=== PATIENT | female | born 1945 | race Caucasian/White ===

== ENCOUNTER 2016-12-18 13:25 | Emergency (ER) | payer MEDICARE ==
[~2016-12-18] VITALS: Ht 160 cm; Wt 68.0 kg
[~2016-12-18 13:25] MED LIST: AMLO1TAB15; FLUT1DIS5; HYDR25TA; SIMV20TA6
[2016-12-18] MEDS ORDERED: IPRATROPIUM BROMIDE (0.02%) 0.5MG/2.5ML NEB HHN STA (14:38)
[2016-12-18] MEDS ORDERED: METHYLPREDNISOLONE SOD SUCC 125 MG/2 ML VIAL IV STA (14:38)
[2016-12-18] MEDS ORDERED: ALBUTEROL (0.083%) 2.5MG/3ML NEB HHN STA (14:38)
[2016-12-18] MEDS ORDERED: LEVOFLOXACIN 500MG PREMIX 100 ML IV ONE (14:45)
[2016-12-18] MEDS ORDERED: MAGNESIUM 2 G PREMIX 50 ML IV ONE (14:45)
[2016-12-18 14:56] LABS: BASOPHILS % 0.7 % (0.0-2.0); EOSINOPHILS % 3.9 % (0.0-5.0); HEMOGLOBIN. 14.2 g/dL (12.0-16.0); LYMPHOCYTES % 6.7 % (20.0-50.0); MEAN CORPUSCULAR HEMOGLOBIN 33.1 pg (28.0-32.0); MEAN CORPUSCULAR VOLUME 97.8 fL (81.0-99.0); MEAN PLATELET VOLUME 8.8 fl (7.4-10.4); MONOCYTES % 9.3 % (2.0-8.0); NEUTROPHILS % 79.4 % (40.0-76.0); PLATELET 179 x1000/uL (130-400); RED CELL DISTRIBUTION WIDTH 14.1 % (11.6-14.6)
[2016-12-18 15:04] LABS: PROTHROMBIN TIME 10.3 sec
[2016-12-18 15:15] LABS: CARBON DIOXIDE 28 mEq/L (21-32); CHLORIDE 105 mEq/L (98-107); TROPONIN I < 0.02 ng/mL (0.00-0.04)
[2016-12-18 15:44] LABS: CLARITY URINE CLEAR (CLEAR); COLOR URINE YELLOW (YELLOW); GLUCOSE URINE NEGATIVE (NEGATIVE); KETONES URINE NEGATIVE (NEGATIVE); LEUKOCYTE ESTERASE URINE NEGATIVE (NEGATIVE); NITRITE URINE NEGATIVE (NEGATIVE); OCCULT BLOOD URINE 1+ (NEGATIVE); PH URINE 5.5 (4.5-8.0); PROTEIN URINE NEGATIVE (NEGATIVE); SPECIFIC GRAVITY URINE 1.009 (1.005-1.030); UROBILINOGEN URINE 0.2 E.U./dL (0.2-1.0)
[2016-12-18 17:15] VITALS: BP 149/76
== END 2016-12-18 17:34 | disposition left against medical advice (07) ==
LOC: ER 14:35 → ENRESERV 16:09 → CANRESERV 16:09 → ER 17:34 → CANBEDREQ 18:34
DX: J44.1 Chronic obstructive pulmonary disease with (acute) exacerbation (principal); I11.0 Hypertensive heart disease with heart failure; I50.9 Heart failure, unspecified; E78.5 Hyperlipidemia, unspecified; Z90.49 Acquired absence of other specified parts of digestive tract
CPT/HCPCS: 36415; 71010; 80053; 81001; 83605; 83880; 84484; 85025; 85610; 86850; 86900; 86901; 87040; 87086; 93005; 94640; 96365; 96368; 96375; 99291; J1956; J2930; J3475; J7611

== ENCOUNTER 2017-02-12 12:18 | Emergency (ER) | payer MEDICARE ==
[~2017-02-12] VITALS: Ht 160 cm; Wt 65.0 kg
[2017-02-12] MEDS ORDERED: ACETAMINOPHEN 500MG TABLET PO ONE (14:45)
[2017-02-12 14:51] VITALS: BP 129/46
== END 2017-02-12 16:09 | disposition home or self-care (01) ==
LOC: ER 13:59
DX: S56.911A Strain of unspecified muscles, fascia and tendons at forearm level, right arm, initial encounter (principal); J44.9 Chronic obstructive pulmonary disease, unspecified; I10 Essential (primary) hypertension; E78.00 Pure hypercholesterolemia, unspecified; Z90.49 Acquired absence of other specified parts of digestive tract; X58.XXXA Exposure to other specified factors, initial encounter; Y93.89 Activity, other specified; Y92.89 Other specified places as the place of occurrence of the external cause; Y99.8 Other external cause status
CPT/HCPCS: 73070; 73090; 99284

== ENCOUNTER 2022-09-20 21:19 | Inpatient (IN) | payer MEDICARE, MEDICAID ==
[~2022-09-20] VITALS: Ht 152.4 cm; Wt 60.8 kg
[~2022-09-20 21:19] MED LIST changes: +SIMV-43; -SIMV20TA6
[2022-09-20] MEDS ORDERED: SODIUM CHLORIDE 0.9% 1,000 ML IV ONE (22:45)
[2022-09-20 23:45] LABS: CHLORIDE 97 mEq/L (98-107)
[2022-09-20 23:51] LABS: HEMATOCRIT. 34.5 % (36.0-48.0); HEMOGLOBIN. 11.2 g/dL (12.0-16.0); MEAN CORPUSCULAR HEMOGLOBIN 30.2 pg (28.0-32.0); MEAN CORPUSCULAR VOLUME 93.3 fL (81.0-99.0); PLATELET 459 x1000/uL (130-400); RED CELL DISTRIBUTION WIDTH 15.6 % (11.6-14.6)
[2022-09-21 01:28] LABS: CLARITY URINE TURBID (CLEAR); COLOR URINE ORANGE (YELLOW); KETONES URINE TRACE (NEGATIVE); LEUKOCYTE ESTERASE URINE 2+ (NEGATIVE); NITRITE URINE NEGATIVE (NEGATIVE); OCCULT BLOOD URINE 3+ (NEGATIVE); PH URINE 5.5 (4.5-8.0); PROTEIN URINE 2+ (NEGATIVE); SPECIFIC GRAVITY URINE 1.026 (1.005-1.030)
[2022-09-21] MEDS ORDERED: VANCOMYCIN 1G PREMIX 200 ML IV NR (01:30)
[2022-09-21] MEDS ORDERED: PIPERACILLIN/TAZ 3.375G PREMIX 50 ML IV NR (01:30)
[2022-09-21] MEDS ORDERED: IOHEXOL-300 100 ML BOTTLE ONE (04:32)
[2022-09-21 08:15] LABS: PLATELET ESTIMATE INCREASED
[2022-09-21] MEDS ORDERED: IPRATROPIUM/ALBUTEROL 0.5-3(2.5)MG/3ML NEB HHN PRN (13:00)
[2022-09-21] MEDS ORDERED: VANCOMYCIN 1G PREMIX 200 ML IV SCH (13:00)
[2022-09-21] MEDS ORDERED: PIPERACILLIN/TAZ 3.375G PREMIX 50 ML IV SCH (13:00)
[2022-09-21] MEDS ORDERED: CLON0.1T PO (14:41)
[2022-09-21] MEDS ORDERED: LABE300T36 PO (14:41)
[2022-09-21] MEDS ORDERED: ASPI-1497 PO (14:41)
[2022-09-21] MEDS ORDERED: MOME13HF11 INH (14:41)
[2022-09-21] MEDS ORDERED: TIOT18CA3 IH (14:41)
[2022-09-21] MEDS: ACETAMINOPHEN 325MG TABLET PO PRN ×2 (15:05→21:11)
[2022-09-21] MEDS: PIPERACILLIN/TAZOBACTAM 3.375G in DEXT 5% WATER 50ML IV SCH ×2 (15:16→23:11)
[2022-09-21 15:41] VITALS: BP 137/75
[2022-09-21 15:53] VITALS: BP 176/68
[2022-09-21 16:30] VITALS: BP 155/63
[2022-09-21] MEDS: VANCOMYCIN 750MG PREMIX 150 ML IV SCH (18:15)
[2022-09-21 20:00] VITALS: BP 166/70
[2022-09-21 21:53] LABS: CREATINE KINASE MB FRACTION 1.5 ng/mL (0.5-3.6)
[2022-09-21] MEDS: HYDROCODONE/ACETAMINOPHEN 5/325MG TABLET PO PRN (23:12)
[2022-09-22] VITALS (7 sets, daily range): BP systolic 130–195; BP diastolic 60–88
[2022-09-22] MEDS: CLONIDINE 0.1MG TABLET PO PRN ×3 (00:41→21:49)
[2022-09-22 02:58] LABS: CREATINE KINASE MB FRACTION 1.6 ng/mL (0.5-3.6)
[2022-09-22] MEDS: PIPERACILLIN/TAZOBACTAM 3.375G in DEXT 5% WATER 50ML IV SCH ×3 (05:43→21:49)
[2022-09-22] MEDS ORDERED: HYDRALAZINE 20MG/ML VIAL IV PRN (10:45)
[2022-09-22] MEDS: VANCOMYCIN 750MG PREMIX 150 ML IV SCH (12:41)
[2022-09-22 13:16] LABS: HEMATOCRIT. 30.2 % (36.0-48.0); HEMOGLOBIN. 10.1 g/dL (12.0-16.0); MEAN CORPUSCULAR HEMOGLOBIN 31.1 pg (28.0-32.0); MEAN CORPUSCULAR VOLUME 92.5 fL (81.0-99.0); MEAN PLATELET VOLUME 8.1 fl (7.4-10.4); PLATELET 421 x1000/uL (130-400); RED BLOOD CELL COUNT 3.27 mill/uL (4.2-5.4); RED CELL DISTRIBUTION WIDTH 15.6 % (11.6-14.6)
[2022-09-22 13:53] LABS: PLATELET ESTIMATE INCREASED
[2022-09-22] MEDS: HYDROCODONE/ACETAMINOPHEN 5/325MG TABLET PO PRN ×2 (14:13→21:49)
[2022-09-22 14:45] LABS: CHLORIDE 98 mEq/L (98-107)
[2022-09-22] MEDS ORDERED: POTASSIUM CHLORIDE 20MEQ TABLET SR PO NR (23:30)
[2022-09-23] MEDS: SODIUM CHLORIDE 0.9% 1,000 ML IV SCH ×2 (00:38→13:37)
[2022-09-23] MEDS: PIPERACILLIN/TAZOBACTAM 3.375G in DEXT 5% WATER 50ML IV SCH ×3 (06:00→21:04)
[2022-09-23] MEDS: VANCOMYCIN 750MG PREMIX 150 ML IV SCH ×2 (06:29→19:02)
[2022-09-23 07:03] LABS: HEMATOCRIT. 32.7 % (36.0-48.0); HEMOGLOBIN. 10.8 g/dL (12.0-16.0); MEAN CORPUSCULAR HEMOGLOBIN 30.9 pg (28.0-32.0); PLATELET 430 x1000/uL (130-400); RED BLOOD CELL COUNT 3.48 mill/uL (4.2-5.4); RED CELL DISTRIBUTION WIDTH 16.1 % (11.6-14.6)
[2022-09-23 07:49] LABS: CHLORIDE 99 mEq/L (98-107)
[2022-09-23 08:00] VITALS: BP 153/74
[2022-09-23] MEDS ORDERED: POTASSIUM CHLORIDE 20MEQ TABLET SR PO NR (08:45)
[2022-09-23] MEDS ORDERED: NALOXONE HCL 0.4MG/ML VIAL IV PRN (09:00)
[2022-09-23 12:00] VITALS: BP 124/79
[2022-09-23] MEDS: ONDANSETRON HCL 4MG/2ML INJ IV PRN (13:51)
[2022-09-23 16:00] VITALS: BP 147/53
[2022-09-23 16:46] LABS: PLATELET ESTIMATE INCREASED
[2022-09-23 20:00] VITALS: BP 134/50
[2022-09-23] MEDS: HYDROCODONE/ACETAMINOPHEN 5/325MG TABLET PO PRN (21:05)
[2022-09-24] VITALS: BP 138/63
[2022-09-24] MEDS: SODIUM CHLORIDE 0.9% 1,000 ML IV SCH ×2 (02:11→18:11)
[2022-09-24 04:00] VITALS: BP 123/55
[2022-09-24] MEDS: VANCOMYCIN 750MG PREMIX 150 ML IV SCH ×2 (05:20→18:10)
[2022-09-24 05:50] LABS: CHLORIDE 105 mEq/L (98-107)
[2022-09-24 06:17] LABS: HEMATOCRIT. 30.1 % (36.0-48.0); HEMOGLOBIN. 9.9 g/dL (12.0-16.0); MEAN CORPUSCULAR VOLUME 94.5 fL (81.0-99.0); MEAN PLATELET VOLUME 8.4 fl (7.4-10.4); PLATELET 394 x1000/uL (130-400); RED BLOOD CELL COUNT 3.18 mill/uL (4.2-5.4); RED CELL DISTRIBUTION WIDTH 15.8 % (11.6-14.6)
[2022-09-24] MEDS: PIPERACILLIN/TAZOBACTAM 3.375G in DEXT 5% WATER 50ML IV SCH ×3 (06:44→23:26)
[2022-09-24] MEDS: HYDROCODONE/ACETAMINOPHEN 5/325MG TABLET PO PRN ×2 (06:45→18:10)
[2022-09-24] MEDS: ONDANSETRON HCL 4MG/2ML INJ IV PRN (06:54)
[2022-09-24 08:10] VITALS: BP 143/61
[2022-09-24 12:00] VITALS: BP 111/58
[2022-09-24 16:00] VITALS: BP 161/63
[2022-09-24 20:00] VITALS: BP 125/65
[2022-09-25] VITALS: BP 117/49
[2022-09-25] MEDS: HYDROCODONE/ACETAMINOPHEN 5/325MG TABLET PO PRN ×3 (00:55→20:20)
[2022-09-25 03:29] LABS: HEMATOCRIT. 26.5 % (36.0-48.0); HEMOGLOBIN. 8.8 g/dL (12.0-16.0); MEAN CORPUSCULAR HEMOGLOBIN 30.5 pg (28.0-32.0); MEAN CORPUSCULAR VOLUME 92.4 fL (81.0-99.0); PLATELET 396 x1000/uL (130-400); RED BLOOD CELL COUNT 2.87 mill/uL (4.2-5.4); RED CELL DISTRIBUTION WIDTH 15.9 % (11.6-14.6)
[2022-09-25 03:32] LABS: CHLORIDE 103 mEq/L (98-107)
[2022-09-25 04:00] VITALS: BP 113/48
[2022-09-25] MEDS: VANCOMYCIN 750MG PREMIX 150 ML IV SCH (06:05)
[2022-09-25] MEDS: PIPERACILLIN/TAZOBACTAM 3.375G in DEXT 5% WATER 50ML IV SCH ×3 (07:05→22:06)
[2022-09-25 07:59] LABS: PLATELET ESTIMATE NORMAL
[2022-09-25 08:00] VITALS: BP 138/69
[2022-09-25 12:00] VITALS: BP 160/67
[2022-09-25 15:24] LABS: PLATELET ESTIMATE NORMAL
[2022-09-25 16:00] VITALS: BP 123/64
[2022-09-25] MEDS: VANCOMYCIN 500MG PREMIX 100 ML IV SCH (17:50)
[2022-09-25 20:00] VITALS: BP 151/64
[2022-09-26] VITALS: BP 125/80
[2022-09-26 04:00] VITALS: BP 145/76
[2022-09-26] MEDS: SODIUM CHLORIDE 0.9% 1,000 ML IV SCH ×2 (04:59→09:39)
[2022-09-26] MEDS: HYDROCODONE/ACETAMINOPHEN 5/325MG TABLET PO PRN ×2 (04:59→17:20)
[2022-09-26] MEDS: VANCOMYCIN 500MG PREMIX 100 ML IV SCH (06:28)
[2022-09-26] MEDS: PIPERACILLIN/TAZOBACTAM 3.375G in DEXT 5% WATER 50ML IV SCH (06:28)
[2022-09-26 08:00] VITALS: BP 132/58
[2022-09-26 12:00] VITALS: BP_SYST 130; BP_SYST 137; BP_DIAS 56; BP_DIAS 65
[2022-09-26 16:00] VITALS: BP 117/60
[2022-09-26] MEDS: MEROPENEM 1,000 MG in SODIUM CHLORIDE 0.9% 100 ML IV SCH (17:20)
[2022-09-26 20:00] VITALS: BP 138/57
[2022-09-27] VITALS (8 sets, daily range): BP systolic 96–144; BP diastolic 50–65
[2022-09-27] MEDS: ACETAMINOPHEN 325MG TABLET PO PRN ×2 (05:32→13:15)
[2022-09-27] MEDS: MEROPENEM 1,000 MG in SODIUM CHLORIDE 0.9% 100 ML IV SCH ×2 (05:32→18:02)
[2022-09-27 05:53] LABS: HEMOGLOBIN. 8.9 g/dL (12.0-16.0); MEAN CORPUSCULAR VOLUME 93.6 fL (81.0-99.0); PLATELET 408 x1000/uL (130-400); RED BLOOD CELL COUNT 2.88 mill/uL (4.2-5.4); RED CELL DISTRIBUTION WIDTH 15.7 % (11.6-14.6)
[2022-09-27 06:06] LABS: CHLORIDE 100 mEq/L (98-107)
[2022-09-27] MEDS: SODIUM CHLORIDE 0.9% 1,000 ML IV SCH (07:53)
[2022-09-27] MEDS ORDERED: POTASSIUM CHLORIDE 20MEQ TABLET SR PO NR (09:45)
[2022-09-27] MEDS ORDERED: HYDROCODONE/ACETAMINOPHEN 7.5/325MG TABLET PO PRN (16:30)
[2022-09-27] MEDS ORDERED: NALOXONE HCL 0.4MG/ML VIAL IV PRN (16:30)
[2022-09-27 20:08] LABS: PLATELET ESTIMATE INCREASED
== END 2022-09-27 20:55 | DRG 871 ==
LOC: ER 21:19 → 7EST 09-21 04:37
PROVIDERS: ADMIT Internal Medicine; ATTEND Internal Medicine
DX: A41.9 Sepsis, unspecified organism (principal); E43 Unspecified severe protein-calorie malnutrition; N39.0 Urinary tract infection, site not specified; E87.1 Hypo-osmolality and hyponatremia; C54.1 Malignant neoplasm of endometrium; E78.00 Pure hypercholesterolemia, unspecified; Z68.26 Body mass index [BMI] 26.0-26.9, adult; R19.00 Intra-abdominal and pelvic swelling, mass and lump, unspecified site; R59.0 Localized enlarged lymph nodes; E87.6 Hypokalemia; I10 Essential (primary) hypertension; D63.8 Anemia in other chronic diseases classified elsewhere; J44.9 Chronic obstructive pulmonary disease, unspecified; Z85.42 Personal history of malignant neoplasm of other parts of uterus; Z90.49 Acquired absence of other specified parts of digestive tract
CPT/HCPCS: 36415; 71045; 74177; 80048; 80053; 80202; 81003; 82553; 83605; 84484; 85025; 86304; 86850; 86900; 87186; 93005; 97162; 97530; 99291; J0360; J2185; J2405; J2543; J3370; J7030; J7050; J7060; Q9967